=== PATIENT | female | born 1975 | race Caucasian/White ===

== ENCOUNTER 2020-05-16 11:47 | Emergency (ER) | payer OTHER, SELFPAY ==
--- NOTE | ~2020-05-16 | CT_ITS ---
EXAMINATION: CT abdomen pelvis w con DATE: 05/16/2020 15:36 INDICATION: Abdominal pain, nausea and diarrhea. TECHNIQUE: Computed tomography (CT) of the abdomen and pelvis was performed with 100 mL Omnipaque-350 intravenous contrast. Automated exposure control and iterative reconstruction technique were employe d. The dose-length product was 198.87 mGy-cm. COMPARISON: None FINDINGS: Negligible dependent atelectasis in the lower lobes. Heart size is normal. No pericardial or pleural effusion. Liver, gallbladder, spleen, pancreas, bilateral adrenal glands and kidneys are normal. Norm al appendix. No abnormal bowel wall thickening or obstruction. Bladder, anteverted uterus and bilater al adnexa are unremarkable. Tiny amount of likely physiologic free fluid in the cul-de-sac. No absces s or free intraperineal gas. No pathologically enlarged abdominal or pelvic lymphadenopathy. Mild lum bar levocurvature and thoracolumbar dextrocurvature. IMPRESSION: 1. Tiny amount of likely physiologic free fluid in the cul-de-sac. No evident acute intra-abdominal/p elvic process. Reviewed, dictated and finalized at location H. IT COUNSELOR IMPRESSION: 1. Tiny amount of likely physiologic free fluid in the cul-de-sac. No evident a cute intra-abdominal/pelvic process.
--- NOTE | ~2020-05-16 | XR_ITS ---
EXAMINATION: XR chest 1V portable EXAM DATE: 05/16/2020 13:42 INDICATION: chest pain, and shortness of breath. Suspect COVID-19. TECHNIQUE: Portable AP frontal chest x-ray was obtained. Comparison is made to prior examination from 07/09/2019. FINDINGS: The lungs are clear. There are no pleural effusions. The cardiomediastinal silhouette is within normal limits. There is no pneumothorax suspected. The bones and soft tissues are unremarkab le. IMPRESSION: No acute cardiopulmonary findings. Reviewed, dictated and finalized at location A. R FINAL INSPECTOR
[2020-05-16 11:51] VITALS: BP 121/76; PULSE 81; RESP 19; TEMP 36.2; O2SAT 100
--- NOTE | 2020-05-16 11:55 | ECG_ITS ---
Measurements Intervals [place] Rate: 72 P: 64 NE: 126 QRS: 46 QRSD: 81 T: 45 QT: 356 QTc: 390 Interpretive Statements SINUS RHYTHM BASELINE ARTIFACT- I, II, III, AVR NORMAL ECG Electronically Signed On 05-16-2020 17:01:10 INSIDE SALES ACCOUNT REPRESENTATIVE by Negro Jimenez D.O.
[2020-05-16 12:14] LABS: Basophils Percent Auto 0.6 % (0.2-1.2); Eosinophils Percent Auto 0.3 % (0-4.4); Hematocrit 30.9 % (37.0-47.0); Hemoglobin 9.4 g/dL (12.0-15.0); Immature Granulocyte Absolute 0.02 K/mm3 (0.00-0.031); Immature Granulocyte Percent A 0.3 % (0-0.5); Lymphocytes Absolute Auto 1.56 K/mm3 (0.9-3.2); Lymphocytes Percent Auto 23.1 % (18.3-44.2); Mean Corpuscular HGB Conc 30.4 g/dl (32-36); Mean Corpuscular Hemoglobin 21.7 pg (26-34); Mean Corpuscular Volume 71.4 fl (80-100); Mean Platelet Volume 9.1 fl (7.4-10.4); Monocytes Absolute Auto 0.3 K/mm3 (0.1-0.6); Monocytes Percent Auto 4.9 % (2.6-8.5); Neutrophils Absolute Auto 4.8 K/mm3 (1.3-6.7); Neutrophils Percent Auto 70.8 % (45.5-73.1); Platelet Count Result 397 k/mm3 (150-375); Red Blood Count 4.33 M/mm3 (4.2-5.4); Red Cell Distribution Width 16.8 % (11.5-14.5); White Blood Count 6.7 K/mm3 (4.5-10.0)
[2020-05-16 12:28] LABS: Anion Gap 9 mmol/L (8-16); Blood Urea Nitrogen 11 mg/dL (7-17); Calcium 8.7 mg/dL (8.4-10.2); Carbon Dioxide 24 mmol/L (22-30); Chloride 106 mmol/L (98-107); Estimated CRCL calculation 78 ml/min; Estimated Glomerular Filt Rate > 60; Glucose 110 mg/dL (65-105); Sodium 139 mmol/L (137-145)
[2020-05-16 12:29] LABS: INR 0.9; Prothrombin Time 13.2 Seconds (11.1-14.7)
[2020-05-16 12:30] LABS: Partial Thromboplastin Time 25.8 SECONDS (22.3-36.8)
[2020-05-16 12:40] LABS: Troponin I < 0.012 ng/mL (0.000-0.034)
--- NOTE | 2020-05-16 13:27 | ED.CHESTPAIN ---
HPI - Chest Pain General Chief Complaint: Chest Pain Stated Complaint: covid test Time Seen by Provider: 05/16/20 13:10 Source: patient Mode of arrival: ambulatory Limitations: no limitations History of Present Illness HPI narrative: This is a 44 year old female that presents to the ER for chest pain since last night. Reports the pain as a pressure. Reports it has been intermittent in nature. Associated with upper abdominal discomfort. Does report history of reflux for which she takes Omeprazole daily. Also reports cold symptoms since as well as diarrhea. Reports she was at work today and was told to come get a COVID swab. She is a nurse at [employer], but Denies fever, shortness of breath, hematochezia, or lower extremity edema. Related Data Home Medications Medication Instructions Recorded Confirmed No Home Medications 05/16/20 05/16/20 Allergies Allergy/AdvReac Type Severity Reaction Status Date / Time No Known Allergies Allergy Verified 05/16/20 11:56 Review of Systems Review of Systems: Narrative: CONSTITUTIONAL: Denies fever CARDIOVASCULAR: Reports chest pain. Denies edema. RESPIRATORY: Reports cough. Denies dyspnea. GASTROINTESTINAL: Reports abdominal pain, nausea, diarrhea. Denies vomiting GENITOURINARY: Denies dysuria or hematuria. All systems reviewed & are unremarkable except as noted in HPI and below PMFSH Family History Family History (Updated 07/06/16 @ 09:24 by DOCTOR UNKNOWN) Mother Family history of malignant neoplasm of breast in first degree relative Social History Social History Smoking status: Never smoker Alcohol intake: current Gender identity (if verbalized by the patient): Female Exam Narrative: Exam Narrative: GENERAL: Well-appearing, well-nourished, and in no acute distress. HEAD: Normocephalic, atraumatic. EYES: EOMI. ENT: Mucous membranes moist. Oropharynx without tonsillar hypertrophy exudate or other lesions. NECK: Supple. No adenopathy or masses. CHEST: Clear to auscultation. No respiratory distress. No wheezes rales or rhonchi HEART: Regular rate and rhythm. No murmur heard. Normal peripheral pulses. ABDOMEN: Soft, nondistended, normal active bowel sounds. Tender to palpation in the epigastrium, without guarding EXTREMITIES: Normal range of motion. No edema. SKIN: Warm, dry, no rash. NEURO: No focal deficits. Alert and oriented x3. PSYCH: Normal mood and affect Course Vital Signs Vital signs: Vital Signs Temperature 97.2 F L 05/16/20 11:51 Pulse Rate 81 05/16/20 11:51 Respiratory Rate 19 05/16/20 11:51 Blood Pressure 121/76 05/16/20 11:51 Pulse Oximetry 100 05/16/20 11:51 Temperature 97.2 F L 05/16/20 11:51 Pulse Rate 72 05/16/20 16:00 Respiratory Rate 16 05/16/20 16:00 Blood Pressure 121/73 05/16/20 16:00 Pulse Oximetry 99 05/16/20 16:00 MDM - Chest Pain MDM Narrative Medical decision making narrative: Patient presents to the emergency department for cold symptoms and abdominal discomfort. Is a nurse at [employer], and was told to come get tested for Covid. Her vitals are normal. CBC is without leukocytosis. Does show a microcytic anemia with hemoglobin of 9.4. Metabolic panel without concerning findings. Baseline and 3-hour troponin are negative. D-dimer is negative. Influenza screen is negative. Chest x-ray is without acute findings. CT scan abdomen and pelvis is without acute findings. No concerning changes on EKG. Patient was updated on case findings. SARS-CoV-2 was sent. Patient's heart score is a 1. Her chest pain is felt to likely be related to her reflux. She reports relief with Protonix and Tylenol. Patient is stable and felt appropriate for further outpatient evaluation. She is to follow-up with her primary care doctor. She was given warnings to return to the ER Lab Data Attestation: I reviewed the patient's lab results. Result diagrams: 05/16/20 12:00 05/16/20 12:00
[2020-05-16 13:43] LABS: Alanine Aminotransferase 14 U/L (4-35); Alkaline Phosphatase 41 U/L (38-126); Aspartate Amino Transferase 28 U/L (14-36); Bilirubin,Total 0.4 mg/dL (0.2-1.3); Lipase 59 U/L (23-300)
[2020-05-16 14:00] VITALS: BP 120/70; PULSE 76; RESP 16; O2SAT 98
[2020-05-16] MEDS: ASPIRIN 81 MG CHEWABLE TABLET 324 MG PO (14:08)
[2020-05-16] MEDS: PANTOPRAZOLE SODIUM IV 40 MG VIAL IV PUSH (14:08)
[2020-05-16 15:20] LABS: Troponin I < 0.012 ng/mL (0.000-0.034)
[2020-05-16 16:00] VITALS: BP 121/73; PULSE 72; RESP 16; O2SAT 99
[2020-05-16 17:00] VITALS: BP 121/68; PULSE 72; RESP 16; O2SAT 97
[2020-05-16 23:37] LABS: SARS-CoV-2 RNA PCR Negative
== END 2020-05-16 17:00 | disposition home or self-care (01) ==
PROVIDERS: General Practice; Physician Assistant; Emergency Provider Emergency Medicine; PCP Family Medicine
DX: K21.9 Gastro-esophageal reflux disease without esophagitis (principal); B34.9 Viral infection, unspecified; D64.9 Anemia, unspecified; Z20.828 Contact with and (suspected) exposure to other viral communicable diseases
CPT/HCPCS: 36415; 71045; 74177; 80048; 80076; 83690; 84484; 85025; 85380; 85610; 85730; 87635; 87804; 93005; 96365; 96375; 99284; A9270; C9113; C9803; J0131; Q9967; U0003

== ENCOUNTER 2020-05-25 10:28 | Outpatient (NON) | payer OTHER, SELFPAY ==
[2020-05-25 14:55] LABS: Influenza Control Positive
[2020-05-26 19:17] LABS: SARS-CoV-2 RNA PCR Positive
== END 2020-05-25 10:29 ==
LOC: ANHCOVIDDT 10:30
PROVIDERS: PCP Family Medicine; Visit Provider Family Medicine
DX: U07.1 COVID-19 (principal)
CPT/HCPCS: 87635; 87804; C9803; U0003

== ENCOUNTER 2021-03-11 15:03 | Outpatient (CLI) | payer OTHER, SELFPAY ==
--- NOTE | ~2021-03-11 | US_ITS ---
Please refer to diagnostic mammogram report dated 03/11/2021 for details. Reviewed, dictated and finalized at location A.
--- NOTE | ~2021-03-11 | MM_ITS ---
EXAMINATION: MM diagnostic david BI w [facility] HISTORY: Palpable right breast abnormality TECHNIQUE: Additional 3-D tomosynthesis images of the breasts were performed and synthetic 2-D images were generated. CAD analysis was submitted and interpreted. High resolution Limited right breast ult rasound was performed. COMPARISON: 11/23/2016 BREAST PARENCHYMAL COMPOSITION: The breasts are extremely dense, which lowers the sensitivity of mamm ography. FINDINGS: MAMMOGRAPHIC FINDINGS: There are new calcifications in the upper outer quadrant of the right breast, many of which layer on the medial lateral view suggesting benign fibrocystic disease. No discrete masses or architectural di stortion is identified. ULTRASOUND: Limited right breast ultrasound: At 10:00, 3 cm from the nipple in the area of palpable concern there is a 1.3 cm cyst. No suspicious solid masses are identified. IMPRESSION: 1. Probable benign right breast calcifications. 2. Recommend 6 month follow-up diagnostic right mammogram BI-RADS category 3, probably benign findings. Reviewed, dictated and finalized at location A.
== END 2021-03-11 15:04 | disposition home or self-care (01) ==
PROVIDERS: PCP Family Medicine; Visit Provider Obstetrics & Gynecology
DX: N63.10 Unspecified lump in the right breast, unspecified quadrant (principal); R92.8 Other abnormal and inconclusive findings on diagnostic imaging of breast
CPT/HCPCS: 76642; 77062; 77066; G0279

== ENCOUNTER 2022-02-15 19:37 | Emergency (ER) | payer OTHER, SELFPAY ==
[2022-02-15 20:03] VITALS: BP 133/96; PULSE 83; RESP 16; TEMP 37; O2SAT 100
--- NOTE | 2022-02-15 20:16 | ED.GENADULT ---
HPI - General Adult General Chief complaint: Extremity Injury, Upper Stated complaint: L SHOULDER/ARM PAIN Time Seen by Provider: 02/15/22 20:16 Source: patient, RN notes reviewed and old records reviewed Mode of arrival: ambulatory Limitations: no limitations History of Present Illness HPI narrative: 46-year-old female who presents to [facility] care with complaints of left scapular pain and left shoulder discomfort for the past 3 days. Patient states today her scapular pain has increased and she has some paraesthesia intermittently to her left hand. Patient reports that she has had similar discomfort on the right side before but not on left scapular area.Patient denies any known injury or any trauma to scapular area or left shoulder. Circulation intact with strong pulses to right arm MD complaint: left scapular pain radiating into shoulder Onset (ago): day(s) (3) Location: neck (left scapula), left and upper extremity Severity scale (1-10): 6 Quality: aching and other (soreness) Treatments prior to arrival: NSAID Related Data Allergies Allergy/AdvReac Type Severity Reaction Status Date / Time No Known Allergies Allergy Verified 12/31/21 09:04 Review of Systems Review of Systems: CONSTITUTIONAL: Denies fever, chills, or sweats. EYES: Denies visual changes, redness, or discharge. ENT: Denies rhinorrhea, congestion, sore throat, or otalgia. CARDIOVASCULAR: Denies chest pain, palpitations, or edema. RESPIRATORY: Denies cough or dyspnea. GASTROINTESTINAL: Denies abdominal pain, nausea, vomiting, or diarrhea. GENITOURINARY: Denies dysuria or hematuria. SKIN: Denies rash or itching. MUSCULOSKELETAL: Reports left scapular area back pain,left shoulder area pain, or myalgia. NEUROLOGIC: Denies headache, numbness, or weakness. PSYCHIATRIC: Denies anxiety or depression. All systems reviewed & are unremarkable except as noted in HPI and below PMFSH Past Medical History Medical History (Updated 02/15/22 @ 21:07 by Blanca Astorga NP) Anemia Hx of migraines Vaginal discharge Surgical History Surgical History (Updated 02/15/22 @ 20:40 by Blanca Astorga NP) No history of previous surgery Family History Family History Mother Family history of malignant neoplasm of breast in first degree relative Social History Social History (Updated 12/31/21 @ 09:07 by Josselyn Disla [facility]) Smoking status: Never smoker Second hand tobacco smoke exposure: No Alcohol intake: current Drinks per week: 4 Substance use: never Substance use type: does not use Additional living arrangements comments: Additional occupation/education comments: RN Gender identity (if verbalized by the patient): Female Sexual Orientation (if Verbalized by the Patient): Straight or Heterosexual Spiritual care concerns: No Agree to blood products: Yes Comments At time of signature, agree with nursing past medical, surgical, social and family history. There is no relevant family history pertinent to the presenting complaint Exam Narrative: GENERAL: Well-appearing, well-nourished, and in no acute distress. HEAD: Normocephalic, atraumatic. EYES: PERRLA and EOMI. ENT: Nares clear, no rhinorrhea or epistaxis. Mucous membranes moist. NECK: Supple.no lymphadenopathy full mobility of neck normal forward flexion CHEST: Clear to auscultation. No respiratory distress. HEART: Regular rate and rhythm. No murmur heard. Normal peripheral pulses. ABDOMEN: Soft, nontender, nondistended, normal active bowel sounds. EXTREMITIES: Normal range of motion. No edema. Painful ROM left shoulder and pain to left scapular area with tightness to muscles noted to scapular area, adequate circulation with strong pulses to left radial and brachial aspect, some intermittent feelings or paraesthesia to left hand SKIN: Warm, dry, no rash. NEURO: No focal deficits. Alert and oriented x3. Course Course Level
== END 2022-02-15 20:33 | disposition home or self-care (01) ==
PROVIDERS: Emergency Provider Registered Nurse; PCP Family Medicine
DX: S46.812A Strain of other muscles, fascia and tendons at shoulder and upper arm level, left arm, initial encounter (principal); X58.XXXA Exposure to other specified factors, initial encounter
CPT/HCPCS: 99213; G0463

== ENCOUNTER 2022-03-14 09:00 | Outpatient (CLI) | payer OTHER, SELFPAY ==
--- NOTE | ~2022-03-14 | MM_ITS ---
EXAMINATION: MM screening david BI w haroldo HISTORY: Screening mammogram, family history of breast cancer in her mother. TECHNIQUE: Craniocaudal and mediolateral oblique 3-D tomosynthesis images were obtained and synthetic 2-D images were generated. CAD analysis was submitted and interpreted. COMPARISON: 03/11/2021, 11/23/2016 BREAST PARENCHYMAL COMPOSITION: The breasts are extremely dense, which lowers the sensitivity of mamm ography. FINDINGS: Scattered benign-appearing calcifications are present. There is no suspicious mass, calcifi cation, or architectural distortion to suggest malignancy in either breast. There has been no suspici ous interval change. IMPRESSION: 1. No mammographic evidence of malignancy. 2. Recommend routine screening mammography in one year. BI-RADS Category 2: Benign finding(s). Reviewed, dictated and finalized at location A.
== END 2022-03-14 09:01 | disposition home or self-care (01) ==
LOC: ANHIMG 09:04
PROVIDERS: PCP Internal Medicine; Visit Provider Obstetrics & Gynecology
DX: Z12.31 Encounter for screening mammogram for malignant neoplasm of breast (principal)
CPT/HCPCS: 77063; 77067

== ENCOUNTER 2022-04-18 15:33 | Emergency (ER) | payer OTHER, SELFPAY ==
--- NOTE | ~2022-04-18 | US_ITS ---
EXAMINATION:US venous doppler LE INDICATION:Swelling. Cold sensation. Evaluate for deep venous thrombosis. TECHNIQUE: Multiple grayscale, color flow and Doppler images of the left lower extremity deep venous systems were obtained and reviewed. COMPARISON:No prior studies for comparison. FINDINGS: The common femoral, superficial femoral veins demonstrate normal respiratory variation, aug mentation and compressibility. There is partially occlusive deep venous thrombosis of the left poplit eal vein. Color flow is also seen within the posterior tibial, peroneal, greater saphenous and profun da veins. IMPRESSION: 1: Partially occlusive deep venous thrombosis of the left popliteal vein. Dr. Renzo Loyd discussed with Dr. Carolina Schuler MD at 04/18/2022 17:35 CDT. Reviewed, dictated and finalized at location B.
[2022-04-18 16:16] VITALS: BP 146/85; PULSE 83; RESP 16; TEMP 36.4; O2SAT 100
--- NOTE | 2022-04-18 17:25 | PC.NURSE ---
Patient off unit to Radiology.
--- NOTE | 2022-04-18 17:37 | ED.LOWEXIN ---
HPI - Extremity Injury (Lower) General Chief Complaint: Extremity Injury, Lower <Alison Bailey PA-C - Last Filed: 04/18/22 19:00> Stated Complaint: left leg pain <Alison Bailey PA-C - Last Filed: 04/18/22 19:00> Time Seen by Provider: 04/18/22 17:29 <Alison Bailey PA-C - Last Filed: 04/18/22 19:00> History of Present Illness HPI Narrative: 46-year-old female who is here for evaluation of left lower extremity swelling and cramping over the past several days. Patient states that she climbed a mountain last week and had a rough descent, has been having cramping and pain since then. Today she noticed some numbness in her left foot which prompted ED evaluation, would like to be checked for a blood clot. Denies personal history of blood clots, family history of blood clots, is not currently on blood thinner medications. States she is very healthy. <Alison Bailey PA-C - Last Filed: 04/18/22 19:00> Related Data Home Medications: Home Medications Medication Instructions Recorded Confirmed ferrous sulfate 325 mg (65 mg 325 mg PO DAILY 03/10/22 03/10/22 iron) tablet <Alison Bailey PA-C - Last Filed: 04/18/22 19:00> Allergies/Adverse Reactions: Allergies Allergy/AdvReac Type Severity Reaction Status Date / Time No Known Allergies Allergy Verified 03/10/22 08:07 <Alison Bailey PA-C - Last Filed: 04/18/22 19:00> [facility] Past Medical History Medical History: Medical History (Updated 04/19/22 @ 00:00 by Ina Rasmussen) Anemia Depression Hx of migraines Seasonal allergies Vaginal discharge <AUGUSTO Long Last Filed: 04/18/22 19:00> Surgical History Surgical History: Surgical History (Updated 04/18/22 @ 15:25 by Emi Duncan) Hx of LASIK No history of previous surgery <AUGUSTO Long Last Filed: 04/18/22 19:00> Family History Family History: Family History (Updated 04/18/22 @ 15:25 by Emi Duncan) Mother Breast cancer Daughter Melanoma <Alison Bailey PA-C - Last Filed: 04/18/22 19:00> Social History Social History: Social History Smoking status: Never smoker Second hand tobacco smoke exposure: No Alcohol intake: current Drinks per week: 4 Substance use: never Substance use type: does not use Additional living arrangements comments: Additional occupation/education comments: RN Gender identity (if verbalized by the patient): Female Sexual Orientation (if Verbalized by the Patient): Straight or Heterosexual Spiritual care concerns: No Agree to blood products: Yes <Alison Bailey PA-C - Last Filed: 04/18/22 19:00> Exam Narrative: APPEARANCE: Well appearing, no pain in distress, well-nourished. Head: Normocephalic and atraumatic. EYES: PERRLA/EOMI, conjunctivae clear NOSE: No nasal drainage EARS: External ear normal in appearance THROAT: Oropharynx is clear. Mucous membranes are moist. NECK: Supple. No adenopathy, no masses. RESPIRATORY: Airway patent, respirations nonlabored. Clear to auscultation bilaterally, no rales, rhonchi, wheezing. CARDIOVASCULAR: 2+ DP and PT pulses bilaterally. Regular rate and rhythm without murmurs, rubs, or gallops. ABDOMINAL: Normoactive bowel sounds. Soft, nontender, nondistended. No rebound tenderness or guarding. MUSCULOSKELETAL: Tender to palpation to left popliteal region. Homans' sign negative. No obvious swelling to extremities. NEURO: Normal speech. No focal neurologic deficits. SKIN: Skin is warm and dry. No rashes. PSYCHIATRIC: Normal affect/mood. <Alison Bailey PA-C - Last Filed: 04/18/22 19:00> Course PLANNING FEEDER/PA Physician Supervision For this encounter, I have reviewed the mid-level provider documentation, treatment plan and medical decision making. I sat down and spoke with the
[2022-04-18 18:03] LABS: Basophils Percent Auto 0.1 % (0.2-1.2); Hematocrit 40.4 % (37.0-47.0); Hemoglobin 13.1 g/dL (12.0-15.0); Immature Granulocyte Absolute 0.03 K/mm3 (0.00-0.031); Immature Granulocyte Percent A 0.4 % (0-0.5); Lymphocytes Absolute Auto 0.64 K/mm3 (0.9-3.2); Lymphocytes Percent Auto 7.7 % (18.3-44.2); Mean Corpuscular HGB Conc 32.4 g/dl (32-36); Mean Corpuscular Hemoglobin 28.6 pg (26-34); Mean Corpuscular Volume 88.2 fl (80-100); Mean Platelet Volume 8.8 fl (7.4-10.4); Monocytes Absolute Auto 0.2 K/mm3 (0.1-0.6); Monocytes Percent Auto 2.8 % (2.6-8.5); Neutrophils Absolute Auto 7.4 K/mm3 (1.3-6.7); Platelet Count Result 380 k/mm3 (150-375); Red Blood Count 4.58 M/mm3 (4.2-5.4); Red Cell Distribution Width 16.5 % (11.5-14.5); White Blood Count 8.3 K/mm3 (4.5-10.0)
[2022-04-18 18:13] LABS: Partial Thromboplastin Time 26.5 SECONDS (22.3-36.8); Prothrombin Time 12.4 Seconds (11.1-14.7)
[2022-04-18 18:14] LABS: Alanine Aminotransferase 37 U/L (6-35); Albumin Level 4.3 g/dL (3.5-5.1); Alkaline Phosphatase 57 U/L (38-126); Anion Gap 10 mmol/L (8-16); Aspartate Amino Transferase 28 U/L (14-36); Bilirubin,Total 0.5 mg/dL (0.2-1.3); Blood Urea Nitrogen 18 mg/dL (7-17); Calcium 8.7 mg/dL (8.4-10.2); Carbon Dioxide 23 mmol/L (22-30); Chloride 104 mmol/L (98-107); Estimated CRCL calculation 89 ml/min; Estimated Glomerular Filt Rate > 60; Glucose 124 mg/dL (65-110); Potassium 4.6 mmol/L (3.4-5.0); Sodium 137 mmol/L (137-145)
[2022-04-18] MEDS: APIXABAN 5 MG TABLET 10 MG PO (19:15)
[2022-04-18 19:23] VITALS: BP 127/91; PULSE 83; RESP 14; O2SAT 100
== END 2022-04-18 19:29 | disposition home or self-care (01) ==
PROVIDERS: Physician Assistant; Emergency Provider Emergency Medicine; PCP Internal Medicine
DX: I82.432 Acute embolism and thrombosis of left popliteal vein (principal); D64.9 Anemia, unspecified; Z79.01 Long term (current) use of anticoagulants
CPT/HCPCS: 36415; 80053; 85025; 85610; 85730; 93971; 99284; A9270

== ENCOUNTER 2022-07-13 08:10 | Outpatient (CLI) | payer OTHER, SELFPAY ==
[2022-07-13 08:42] LABS: Basophils Absolute Auto 0.1 K/mm3 (0.0-0.1); Basophils Percent Auto 1.1 % (0.2-1.2); Eosinophils Absolute Auto 0.1 K/mm3 (0-0.3); Eosinophils Percent Auto 1.5 % (0-4.4); Hematocrit 36.7 % (37.0-47.0); Hemoglobin 12.1 g/dL (12.0-15.0); Immature Granulocyte Absolute 0.03 K/mm3 (0.00-0.031); Immature Granulocyte Percent A 0.5 % (0-0.5); Lymphocytes Absolute Auto 1.65 K/mm3 (0.9-3.2); Lymphocytes Percent Auto 30.1 % (18.3-44.2); Mean Corpuscular Hemoglobin 29.4 pg (26-34); Mean Corpuscular Volume 89.1 fl (80-100); Mean Platelet Volume 8.9 fl (7.4-10.4); Monocytes Absolute Auto 0.4 K/mm3 (0.1-0.6); Monocytes Percent Auto 7.3 % (2.6-8.5); Neutrophils Absolute Auto 3.3 K/mm3 (1.3-6.7); Neutrophils Percent Auto 59.5 % (45.5-73.1); Platelet Count Result 341 k/mm3 (150-375); Red Blood Count 4.12 M/mm3 (4.2-5.4); Red Cell Distribution Width 13.8 % (11.5-14.5); White Blood Count 5.5 K/mm3 (4.5-10.0)
== END 2022-07-13 08:11 | disposition home or self-care (01) ==
PROVIDERS: PCP Internal Medicine; Visit Provider Student in an Organized Health Care Education/Training Program
DX: N93.9 Abnormal uterine and vaginal bleeding, unspecified (principal)
CPT/HCPCS: 36415; 85025

== ENCOUNTER → 2022-07-27 10:41 | Outpatient (CLI) | payer OTHER, SELFPAY ==
--- NOTE | ~2022-07-27 | US_ITS ---
EXAMINATION: US venous doppler [facility] DATE: 07/27/2022 11:52 INDICATION: Lower limb swelling, history of deep venous thrombosis TECHNIQUE: Isaacs scale images without and with compression and Doppler images of the left lower extrem ity veins were obtained. COMPARISON: 04/18/2022 FINDINGS: The left common femoral vein, profunda femoral vein, femoral vein, popliteal vein, peroneal trunk, posterior tibial veins, and greater saphenous vein are patent. IMPRESSION: 1. Patent left lower extremity veins. No evidence of deep venous thrombosis. Reviewed, dictated and finalized at location F. VITIES THERAPIST
== END ==
PROVIDERS: PCP Clinical Nurse Specialist; Visit Provider Clinical Nurse Specialist
DX: I82.409 Acute embolism and thrombosis of unspecified deep veins of unspecified lower extremity (principal)
CPT/HCPCS: 93971

== ENCOUNTER 2022-08-05 13:27 | Outpatient (CLI) | payer OTHER, SELFPAY ==
[2022-08-08 21:29] LABS: Antithrombin III Activity 127 % normal (80-135)
[2022-08-14 01:32] LABS: Factor V (Leiden) Mutation NEGATIVE
== END 2022-08-05 13:28 | disposition home or self-care (01) ==
PROVIDERS: PCP Clinical Nurse Specialist; Visit Provider Clinical Nurse Specialist
DX: I82.409 Acute embolism and thrombosis of unspecified deep veins of unspecified lower extremity (principal)
CPT/HCPCS: 36415; 81240; 81241; 85300; 85303; 85306

== ENCOUNTER 2022-09-15 12:17 | Outpatient (CLI) | payer OTHER, SELFPAY | END 2022-09-15 12:18 | disposition home or self-care (01) | LOC: ANHLAB 12:18 | PROVIDERS: PCP Clinical Nurse Specialist; Visit Provider Student in an Organized Health Care Education/Training Program | DX: N92.0 Excessive and frequent menstruation with regular cycle (principal); Z01.818 Encounter for other preprocedural examination | CPT/HCPCS: 36415 ==

== ENCOUNTER 2022-09-22 01:38 | Day surgery (SDC) | payer OTHER, SELFPAY ==
[2022-09-12 15:40] VITALS: BMI 20.6
--- NOTE | 2022-09-12 15:49 | SUR.PREOP ---
Report to the Outpatient Waiting Room, entrance under the green pavilion located off [facility], at time 1100 on date 09/22/22. Planned Procedure Time: 1300. Time changes happen often and if your time is changed the preop area will call you the afternoon before. - You and your visitor will be asked to self-screen and do not enter if you have any COVID symptoms. - Only one visitor is requested with a max of two and NO children visitors are allowed at this time. - The patient visitor may be requested to leave or wait in car when not with patient due to distancing restrictions. - A mask is optional within the hospital at this time. Patients may have clear liquids (water, carbonated beverages, clear teas, apple juice) until 3 hours prior to surgery with a maximum of 20 ounces. - No food from midnight until time of surgery - Infants may have breast milk until 4 hours before surgery, formula 6 hours prior to surgery. - Children will be allowed to drink immediately following surgery. If applicable, please bring a bottle or sippy cup to assist with drinking. Juice, water, soda, and popsicles are readily available. For infants on formula, please bring formula the day of surgery. Pacifiers are allowed. Take the following medications with a SIP of water the morning of surgery: ___HOLD MORNING MEDS DO NOT STOP ANY OF YOUR OTHER PRESCRIPTION MEDICATIONS PRIOR TO SURGERY ?EXCEPT THE FOLLOWING Medications to discontinue per physician __HOLD FISH OIL AND B12 3 DAYS PRIOR TO PROCEDURE Date to take last dose Please no make-up, nail irish, hairspray, perfume, deodorant, or body powder the day of surgery. No jewelry (including any body piercings) or valuables the day of surgery, leave them at home. Please take a shower or bath the night before, or the morning of, surgery with an antibacterial soap. Wear comfortable, loose fitting clothing. Children are encouraged to wear pajamas. - Jewelry must be removed prior to entering the operating room. Rings and piercings that are not removed may be cut off. - The hospital will not accept responsibility for valuables. - Please leave all valuables, including medications, at home the day of surgery. If you are going home after surgery, a licensed solo truck driver must drive you home. - NO public transportation without another adult if you receive anesthesia. - We recommend that an adult stay with you for 24 hours following discharge. - We also recommend that you do not drive, make important decision, drink alcoholic beverages, or take any drugs that were not prescribed by your health care provider for at least 24 hours after your discharge time. For Pediatric surgeries, we recommend two adults accompany the child home. Follow any additional instructions given to you from your surgeon. If you or anyone in your household have experienced Covid symptoms in the past week, please notify your surgeon or the nurse liaison at the phone number below for possible testing. Telephone instructions given to _PATIENT_and asked if any additional questions and then verbalized understanding. Patient advised to call surgeon office or pre surgery nurse liaison [phone] if any additional questions.
--- NOTE | 2022-09-22 08:07 | PM.IMHP ---
H&P: HPI History of Present Illness Date/Time: 09/22/22 08:07 Chief Complaint: abnormal uterine bleeding Narrative: 38-year-old female who presents for hysteroscopy, D&C, endometrial ablation for abnormal uterine bleeding. Patient was having heavy menses with prolonged intermenstrual bleeding. Patient had a pelvic ultrasound which showed possible uterine polyp. Patient elected for surgical management with endometrial ablation. Review of Systems Cardiovascular: Cardiovascular: Denies chest pain, Denies leg edema, Denies palpitations, Denies dyspnea and Denies dyspnea on exertion Respiratory: Respiratory: Denies cough, Denies dyspnea and Denies dyspnea on exertion Gastrointestinal: Gastrointestinal: Denies abdominal pain, Denies constipation, Denies diarrhea, Denies nausea and Denies vomiting Genitourinary: Genitourinary: Denies hematuria, Denies urinary frequency, Denies dysuria, Denies pelvic pain, Denies urinary incontinence and Denies vaginal discharge Neurologic: Reports system reviewed and no additional complaints, except as documented Psychiatric: Psychiatric: Reports no additional psychiatric complaints Endocrine: Endocrine: Denies palpitations PMFSH Past Medical History Medical History Anemia Depression Endometrial cyst of ovary Hx of migraines Seasonal allergies Vaginal discharge Surgical History Surgical History Hx of LASIK No history of previous surgery Family History Family History Mother Breast cancer Daughter Melanoma Social History Social History (Updated 08/29/22 @ 10:32 by Sujey Brown CMA) Smoking status: Never smoker Second hand tobacco smoke exposure: No Alcohol intake: current Drinks per week: 4 Substance use: never Substance use type: does not use Lack of Transportation: No Lack of Food: Never True Current Housing: I Have Housing Concerned About Future Housing: No Difficulty Paying Gas/Electric Bills: No Difficulty Paying for Meds: No Currently Unemployed: No Education: Bachelor's Degree Difficulty w/ Childcare or Family Care: No Living arrangements: with family Additional living arrangements comments: Occupation/Education: occupation Additional occupation/education comments: RN Gender identity (if verbalized by the patient): Female Sexual Orientation (if Verbalized by the Patient): Straight or Heterosexual Spiritual care concerns: No Agree to blood products: Yes Meds Home Medications and Allergies Home Medications Medication Instructions Recorded Confirmed Type cetirizine 10 mg tablet (Zyrtec) 10 mg PO DAILY 09/12/22 09/12/22 History cyanocobalamin (vitamin B-12) 5,000 mcg PO DAILY 09/12/22 09/12/22 History 5,000 mcg sublingual tablet (Vitamin B-12) omega-3 fatty acids 1,000 mg PO DAILY 09/12/22 09/12/22 History omeprazole 20 mg tablet,delayed 20 mg PO DAILY 09/12/22 09/12/22 History release ofloxacin 0.3 % eye drops 2 drp EACH EYE QID #10 mL 09/20/22 Rx Allergies Allergy/AdvReac Type Severity Reaction Status Date / Time No Known Allergies Allergy Verified 06/15/22 13:35 Exam Const: General: no acute distress Eyes: EOM: EOMs intact bilaterally Neck: Neck: supple Thyroid: thyroid normal Chest: Breast/axilla inspection: normal inspection of the breasts Breast/axilla palpation: normal palpation of the breasts, normal palpation of the axillae and no axillary lymphadenopathy Resp: Effort & Inspection: normal respiratory effort Auscultation: clear to auscultation bilaterally Cardio: Rate: regular rate Rhythm: regular rhythm GI: Inspection: non-distended GI Palp: Yes Soft to palpation, No Tenderness to palpation present (GI) and No Guarding due to palpation present (GI) Auscultation: normal bowel sounds :
--- NOTE | 2022-09-22 08:10 | WPDHPUPDATE1 ---
History and Physical Update Update Date/Time: 09/22/22 08:10 History and Physical has been reviewed, including an updated exam of the patient. There are NO changes in the patient's condition. Risks, benefits, and alternatives have been discussed and questions answered. Patient agrees to proceed with procedure.
[2022-09-22] MEDS: ACETAMINOPHEN 500 MG TABLET 1000 MG PO (10:47)
--- NOTE | 2022-09-22 10:51 | WPDANESEPPF ---
Anes - Initial Pre Proc Eval Procedure: Operation Date: 09/22/22 12:00 Proposed Procedures p Hysteroscopy Dilation and Curettage, Rosalva Endometrial Ablation - Moise Geller MD Date/Time: 09/22/22 10:51 Surgeon: Moise Geller MD Pre Op Diagnosis: abnormal uterine bleeding Patient Data Age: 46 Gender: F Height: 1.68 m Weight: 58.06 kg Allergies Allergy/AdvReac Type Severity Reaction Status Date / Time No Known Allergies Allergy Verified 06/15/22 13:35 Home Medications Medication Instructions Recorded Confirmed Type cetirizine 10 mg tablet (Zyrtec) 10 mg PO DAILY 09/12/22 09/12/22 History cyanocobalamin (vitamin B-12) 5,000 mcg PO DAILY 09/12/22 09/12/22 History 5,000 mcg sublingual tablet (Vitamin B-12) omega-3 fatty acids 1,000 mg PO DAILY 09/12/22 09/12/22 History omeprazole 20 mg tablet,delayed 20 mg PO DAILY 09/12/22 09/12/22 History release ofloxacin 0.3 % eye drops 2 drp EACH EYE QID #10 mL 09/20/22 Rx Patient hx anesthesia problems: none Family hx anesthesia problems: none Results Review: All pre-operative results and documents have been reviewed as part of the pre-operative evaluation. [facility] Past Medical History Medical History Anemia Depression Endometrial cyst of ovary Hx of migraines Seasonal allergies Vaginal discharge Surgical History Surgical History Hx of LASIK No history of previous surgery Family History Family History Mother Breast cancer Daughter Melanoma Social History Social History (Updated 08/29/22 @ 10:32 by Sujey Brown CMA) Smoking status: Never smoker Second hand tobacco smoke exposure: No Alcohol intake: current Drinks per week: 4 Substance use: never Substance use type: does not use Lack of Transportation: No Lack of Food: Never True Current Housing: I Have Housing Concerned About Future Housing: No Difficulty Paying Gas/Electric Bills: No Difficulty Paying for Meds: No Currently Unemployed: No Education: Bachelor's Degree Difficulty w/ Childcare or Family Care: No Living arrangements: with family Additional living arrangements comments: Occupation/Education: occupation Additional occupation/education comments: RN Gender identity (if verbalized by the patient): Female Sexual Orientation (if Verbalized by the Patient): Straight or Heterosexual Spiritual care concerns: No Agree to blood products: Yes Anes - Eval Final PreProcedure Day of Procedure 09/22/22 10:51 Patient weight: normal Heart: regular rate and rhythm Lungs: clear to auscultation Airway: Mallampati scale class II Neurological: alert and oriented Last oral intake: >/= 8 hours ASA classification: II Emergent: no Anesthetic plan: proceed Anesthesia type and monitoring: general GIVS and standard monitoring Results Review: All pre-operative results and documents have been reviewed as part of the pre-operative evaluation. Informed Consent: The patient's anesthetic plan and its attendant risks and benefits were discussed with the patient/family/POA. Questions were solicited and answers provided to the satisfaction of the patient/family/POA.
[2022-09-22 11:00] VITALS: BP 131/76; PULSE 70; RESP 16; TEMP 37.1; O2SAT 100
[2022-09-22] MEDS: LACTATED RINGERS 1,000 ML 30 ML IV CONT (11:00)
[2022-09-22 11:23] LABS: Hematocrit 36.6 % (37.0-47.0)
[2022-09-22] MEDS: LIDOCAINE HCL 1% LOCAL INJ 20 ML VIAL 10 ML INFILTRATE (12:15)
[2022-09-22 12:28] VITALS: BP 104/76; PULSE 76; RESP 16; O2SAT 100
--- NOTE | 2022-09-22 12:28 | W.PM.PROC2 ---
Procedure Note - Detailed Date of Procedure 09/22/22 Pre-op Diagnosis abnormal uterine bleeding Post-op Diagnosis Same Procedure Performed paracervical block hysteroscopy dilation & curettage endometrial ablation Surgeon Moise Geller MD Anesthesia General Indications abnormal uterine bleeding Findings intrauterine polyp originating from the left uterine sidewall. Normal tubal ostia bilaterally Description of Procedure Casie Covarrubias presents for the above procedure for AUB. She was counseled as to the indications, risks, benefits, and alternatives to surgery, with the risks including bleeding, infection, damage to surrounding organs, VTE, and complications of anesthesia. Her verbal and written consent was obtained. PROCEDURE: The patient was taken to the OR and general anesthesia induced. She was prepped and draped in Ken stirrups with support of the back and bilateral lower extremities. I/O catheterization performed of the bladder. The above findings were noted. Infiltration with 1% lidocaine at the 3 and 9 o'clock cervical positions was performed. A single tooth tenaculum was placed on the anterior lip of the cervix. The uterus sounded to 10 cm. The cervix was dilated with sequential Gregoria dilators. Hysteroscopy, using a normal saline medium, was performed and showed the above findings. The uterine polyp was removed usince the Aveta hysteroscope operative blade. Endometrial sampling was also obtained. The Rosalva device was set to a depth of 6 cm. The device was inserted into the uterus and deployed. Good fit was reassured by the device indicator. The cervical balloon was insufflated to ensure a good seal. Uterine integrity test was performed by the Rosalva device and was successful. The device was then activated. The entire ablation procedure lasted 120 seconds. The cervical balloon was desufflated and the device was removed from the uterus. The hysteroscope was re-introduced to ensure adequate tissue ablation. The tenaculum was removed and hemostasis was observed. The patient tolerated the procedure well. Sponge, lap, and needle counts were correct. T The patient was taken to the recovery room in stable condition. Estimated Blood Loss 5 Urine Output 100 Drains No Packing No Pathology Yes (endometrial curettings ) Complications No immediate complications Condition Stable Disposition PACU [facility] Billing Surgery - Charge Forward: Surgery Billing
[2022-09-22 12:55] VITALS: BP 104/71; PULSE 75; RESP 16
[2022-09-22 13:25] VITALS: BP 127/87; RESP 16
== END 2022-09-22 13:30 | disposition home or self-care (01) ==
PROVIDERS: PCP Clinical Nurse Specialist; Visit Provider Student in an Organized Health Care Education/Training Program
PROC: 0U5B8ZZ Destruction of Endometrium, Via Natural or Artificial Opening Endoscopic (ICD-10-PCS; CPT 58563; principal; 2022-09-22 12:00)
DX: N92.0 Excessive and frequent menstruation with regular cycle (principal); N84.0 Polyp of corpus uteri
CPT/HCPCS: 58563; 36415; 85014; 85018; 88305; A9270; J1885; J2250; J2704; J3010; J7120

== ENCOUNTER 2023-09-29 07:44 | Outpatient (CLI) | payer BC, SELFPAY ==
--- NOTE | ~2023-09-29 | MM_ITS ---
EXAMINATION: MM screening david BI w haroldo HISTORY: Screening TECHNIQUE: Craniocaudal and mediolateral oblique 3-D tomosynthesis images were obtained and synthetic 2-D images were generated. CAD analysis was submitted and interpreted. COMPARISON: Comparison to multiple prior studies sequentially, with oldest reviewed study dated 11/23. BREAST PARENCHYMAL COMPOSITION: Dense: The breasts are heterogeneously dense, which may obscure small masses FINDINGS: There is a new mass located in the medial aspect of the right breast on CC view. There are developing clustered indeterminate calcifications in the upper outer quadrant of the right breast. Th e left breast is stable without evidence for malignancy. IMPRESSION: 1. Developing clustered indeterminate right breast calcifications. New right breast mass seen on CC v iew only located medially. 2. Additional mammographic views and possible breast ultrasound are recommended. BI-RADS Category 0: Incomplete: Needs additional imaging evaluation. Reviewed, dictated and finalized at location A. IMPRESSION: 1. Developing clustered indeterminate right breast calcifications. New right br east mass seen on CC view only located medially. 2. Additional mammographic views and possible breast ultrasound are recommended . BI-RADS Category 0: Incomplete: Needs additional imaging evaluation.
== END 2023-09-29 07:45 | disposition home or self-care (01) ==
LOC: ANHIMG 07:46
PROVIDERS: PCP Clinical Nurse Specialist; Visit Provider Obstetrics & Gynecology
DX: Z12.31 Encounter for screening mammogram for malignant neoplasm of breast (principal); R92.8 Other abnormal and inconclusive findings on diagnostic imaging of breast
CPT/HCPCS: 77063; 77067

== ENCOUNTER 2023-10-31 10:38 | Outpatient (CLI) | payer BC, SELFPAY ==
--- NOTE | ~2023-10-31 | MMUS_ITS ---
EXAMINATION: MM diagnostic david RT w haroldo, US breast RT complete HISTORY: Developing clustered indeterminate right breast calcifications and new right breast mass rep orted on September 29, 2023 screening mammogram TECHNIQUE: Additional 3-D tomosynthesis images of the right breast were performed and synthetic 2-D i mages were generated. ML and CC magnification views. CAD analysis was submitted and interpreted. High resolution breast ultrasound was performed. COMPARISON: September 29, 2023 bilateral screening mammogram / bilateral screening mammogram 03/11/2021 diagnostic bilateral mammogram 11/23/2016 bilateral screening mammogram FINDINGS: MAMMOGRAPHIC FINDINGS: Numerous punctate and circular microcalcifications are noted in the upper outer quadrant of the right breast, present on prior examinations. No suspicious linear or branching microcalcifications are not ed. There is no sonographic correlate. ULTRASOUND: 3:00 4 cm from nipple: 2.5 x 3.7 x 4.2 mm cyst 7:00 2 cm from nipple: Septated cyst 2.8 x 3.3 x 2 x 5 mm hypoechoic or sonolucent lesion without internal vascularity or posterior shadow ing is noted in the right breast at 7:00 4 cm from the nipple. The lesion is antiparallel. 6 month fo llow-up targeted ultrasound at this location is recommended. 9:00 5 cm from nipple: Septated 4.6 x 13.7 mm cyst 10:00 3 cm from nipple: 3.7 x 11.8 mm cyst IMPRESSION: 1. Probably benign findings 2. Six-month diagnostic right mammogram and targeted ultrasound follow-up at 7:00 4 cm from the nippl e is recommended BI-RADS category 3, probably benign findings. Reviewed, dictated and finalized at location B. IMPRESSION: 1. Probably benign findings 2. Six-month diagnostic right mammogram and targeted ultrasound follow-up at 7: 00 4 cm from the nipple is recommended BI-RADS category 3, probably benign findings.
== END 2023-10-31 10:39 | disposition home or self-care (01) ==
PROVIDERS: PCP Clinical Nurse Specialist; Visit Provider Obstetrics & Gynecology
DX: R92.8 Other abnormal and inconclusive findings on diagnostic imaging of breast (principal)
CPT/HCPCS: 76641; 77061; 77065; G0279

== ENCOUNTER 2024-05-03 10:50 | Outpatient (CLI) | payer BC, SELFPAY ==
--- NOTE | ~2024-05-03 | MMUS_ITS ---
EXAMINATION: MM diagnostic david RT w haroldo, US breast RT limited HISTORY: Follow-up right breast mass and right breast calcifications TECHNIQUE: Additional 3-D tomosynthesis images of the right breast were performed and synthetic 2-D i mages were generated. CAD analysis was submitted and interpreted. High resolution Limited right breas t ultrasound was performed. COMPARISON: Comparison to multiple prior studies sequentially, with oldest reviewed study dated 03/11. BREAST PARENCHYMAL COMPOSITION: Dense: The breasts are heterogeneously dense, which may obscure small masses FINDINGS: MAMMOGRAPHIC FINDINGS: There are no suspicious masses or architectural distortion. Stable benign-appearing punctate calcific ations in the upper outer quadrant of the right breast. ULTRASOUND: Limited right breast ultrasound: At 7:00, 4 cm from the nipple there is a minimally complicated cyst measuring 1.3 x 1.3 x 0.6 cm with internal septation. No suspicious masses to suggest malignancy. IMPRESSION: 1. No evidence for malignancy in the right breast. Benign findings. 2. Routine yearly screening mammogram and regular clinical breast examination are recommended. BI-RADS Category 2: Benign finding(s). Reviewed, dictated and finalized at location B. EM DISPATCHER IMPRESSION: 1. No evidence for malignancy in the right breast. Benign findings. 2. Routine yearly screening mammogram and regular clinical breast examination a re recommended. BI-RADS Category 2: Benign finding(s).
== END 2024-05-03 10:51 | disposition home or self-care (01) ==
LOC: ANHIMG 10:51
PROVIDERS: PCP Clinical Nurse Specialist; Visit Provider Obstetrics & Gynecology
DX: N63.10 Unspecified lump in the right breast, unspecified quadrant (principal); R92.0 Mammographic microcalcification found on diagnostic imaging of breast
CPT/HCPCS: 76642; 77061; 77065; G0279

== ENCOUNTER 2024-10-18 15:41 | Emergency (ER) | payer OTHER, SELFPAY ==
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
[2024-10-18 15:42] VITALS: BP 120/82; PULSE 68; RESP 16; TEMP 36.3; O2SAT 100
--- OUTSIDE RECORDS SUMMARY | 2024-10-18 15:44 | XMS_ITS | Clinical Summary ---
Author Organization [facility] Address [address] [place] [address] Care Team Providers Care Teacher Associate Name Role Phone ReubenYvonne mtz [employer] ATTENDANT-[facility] Primary Care Provider [phone] Source Comments [facility],non-owned Affiliates and Associated Physician Practices is amultiple site organization consisting of ambulatory clinics and hospital sitesin [place], [place], [place] and [place]. This disclosure is being madepursuant to the Care Everywhere program and may not contain all information available regarding this patient. Last updated 18.[facility] Allergies No known active allergies Medications * Be aware that medications may not be up to date on this document. Alwaysverify current medications with the patient. No known medications Immunizations Immunization Administration Dates Next Due INFLUENZA VACCINE, QUADR. (F LUZONE; FLULAVAL; FLUARIX; AFLURIA QUADRIVALENT; 6MO+), 0.5 ML (IIV4) 03/16/2018 Social History Tobacco Use Types Packs/Day Years Used Date Smoking Tobacco: Never Assessed Comments Unknown Sex and Gender Information Value Date Recorded Sex Assigned at Not on file Legal Sex Female 8:27 AM CDT Gender Identity Not on file Sexual Orientation Not on file Plan of Treatment Health Maintenance Due Date Last Done Comments COLOGUARD (AGES 45-75) - COL ON CA SCREENING 1973 COLON MONITORING 1973 COLONOSCOPY - COLON CA SCREENING 1973 CT COLONOGRAPHY - COLON CA SCREENING 1973 Colorectal Cancer Screening 1973 FIT - COLON CA SCREENING 1973 FLEX SIG - COLON CA SCREENING 1973 LIPID TESTING 1973 MAMMOGRAM 1973 HIV SCREENING 1988 HEPATITIS C SCREENING 11/01/1991 DTAP/TDAP/TD VACCINES (1 - Tdap) 1992 HEPATITIS B VACCINE (1 of 3 - 19+ 3-dose series) 1992 PNEUMOCOCCAL VACCINE 50+ (1 of 1 - PCV) 11/06/2023 ZOSTER VACCINE (1 of 2) 11/06/2023 COVID-19 VACCINE (3 - 2023-2 5 season) 2024 07/06/2020, 06/15/2020 DEPRESSION SCREENING 06/26/2024 INFLUENZA VACCINE (Season Ended) 2025 03/16/2018, 03/20/2017 HIB VACCINE Aged Out No longer eligi ble based on patient's age to complete this topic HPV VACCINE Aged Out No longer eligi ble based on patient's age to complete this topic MENINGOCOCCAL (Group B) VACCINE SHARED DECISION-MAKING Aged Out No longer eligible based on patient's age to complete this topic MENINGOCOCCAL GROUPS A/C/Y/W VACCINE Aged Out No longer eligible b ased on patient's age to complete this topic Insurance Care Teams Teacher Associate Relationship Specialty Start Date End Date Yvonne Vaughn APRN-CNS [address] [place] [address] PCP - General 10/13/22
--- OUTSIDE RECORDS SUMMARY | 2024-10-18 15:44 | XMS_ITS | Clinical Summary ---
Author Organization [facility] [address] Address [address] [place] [address] Phone Care Team Providers Care Soda Fountain Manager Name Role Phone Yvonne Vaughn NP Primary Care Provider [phone] Guy Monroy MD Unavailable [phone] Allergies No known active allergies Medications cyclobenzaprine (FLEXERIL) 10 mg tablet TK 1 T PO HS PRF SPASMS 2 8 Active rizatriptan (MAXALT) 10 mg tabletIndication s:Migraine TK 1 T PO 1 TIME. MAY REPEAT AT 2 HOUR INTERVALS. DO NOT EXCEED 30 MG IN 24 H 1 8 Active fluconazole (DIFLUCAN) 150 mg tablet 1 po now, and repeat in 4 days. 2 tablet 1 8 Active Additional Information Patient not taking.Reported on 07/16/2024 clotrimazole-bet amethasone (LOTRISONE) cream Apply topically 2 (two) times a day. 15 g 1 8 Active Additional Information Patient not taking.Reported on 07/16/2024 terconazole (TERAZOL 7) 0.4 % vaginal creamIndications :Vulvovaginal Candidiasis Insert 1 applicator into the vagina nightly. 45 g 8 Active Additional Information Patient not taking.Reported on 07/16/2024 estradioL (ESTRACE) 0.01 % (0.1 mg/gram) vaginal cream USE 1 GRAM VAGINALLY 3 TIMES A WEEK 4 Active Active Problems Problem Noted Date Diagnosed Date Knee pain 11/11/2014 Overview (09/29/2016): Knee pain Arthritis 11/11/2014 Overview (09/29/2016): Arthritis Encounters Date Type Department Care Team Description 08/01/[address] [address] Savannah Zavaleta RN from Last 3 Months Immunizations Immunization Administration Dates Next Due Tdap 04/07/2008 Surgical History Surgery Date Site/Laterality Comments NO PAST SURGERIES ABLATION Uterine Medical History Medical History Date Comments Situational depression History of cold sores HSV 1 Migraine headache Heartburn Family History Medical History Relation Name Comments Melanoma Daughter X 3; genetic te sting negative; has a paternal aunt who had melanoma at age 30 Unknown Family History Father Davonte nt does not know any other paternal family history be sites her father. Crohn's disease Maternal Grandfather Hypertension Maternal Grandfather Diabetes Maternal Grandmother Throat cancer Maternal Grandmother Breast cancer Mother Patient states mother was around age 50 50. 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[place], [place] Not on file Not on file Not on file Obstetrics History Para Term AB IAB SAB Ectopic Multiple Livin g Live Births 3 3 3 0 0 0 0 0 0 3 3 Date Outcome GA Total Labor Labor/2nd/3rd Weight Sex Type Anes PTL Suzi A1 A5 Name Clin Term Term Term Last Filed Vital Signs Vital Sign Reading Time Taken Comments Blood Pressure 104/65 07/16/2024 9:45 AM CHANNELER Pulse 88 07/16/2024 9:45 AM CHANNELER Temperature 36.7 C (98.1 F) 07/16/2024 9:45 AM CHANNELER Respiratory Rate 18 07/16/2024 9:45 AM CHANNELER Oxygen Saturation 100% 07/16/2024 9:45 AM CHANNELER Inhaled Oxygen Concentration - - Weight 57.2 kg (126 lb 3.2 oz) 07/16/2024 9:45 A M CHANNELER Height 166.4 cm (5' 5.5 ) 07/16/2024 9:45 AM CHANNELER Body Mass Index 20.68 07/16/2024 9:45 AM CHANNELER Plan of Treatment Health Maintenance Due Date Last Done Comments Breast Cancer Screening-Mammogram 1973 Colon Cancer Screening-Colonoscopy 1973 Depression Screening 1973 Hepatitis C Screening 1973 Cervical Cancer Screening 10/02/2018 10/02/2017 Regular Well Visit/Exam 18-64 10/02/2018 10/02/2017 Zoster Vaccine (1 of 2) 11/06/2023 Covid-19 Vaccine ( season) 2024 05/22/2023, 03/06/2022, 07/06/2020, Additional history exists DTaP/Tdap/Td Vaccine (3 - Td or Tdap) 07/06/2026 07/06/2016, 04/07/2008 Hepatitis B Screening Completed 02/03/2017 , 09/02/2016, 08/05/2016 Influenza Vaccine Completed 04/12/2024, , 03/17/2022, Additional history exists Pneumococcal vaccine <65 Aged Out No longer eligible based on patient's age to complete this topic Procedures Procedure Name Priority Date/Time Associated Diagnosis Comments THINPREP IMAGING PAP AND HPV MRNA E6/E7 REFLEX HPV 16,18/45 Routine 10/02/2017 3:44 PM CDT from Last 3 Months or Most Recently Relevant to Health Maintenance Results * ThinPrep Imaging Pap and HPV mRNA E6/E7 Reflex HPV 16,18/45 (10/02/2017 3:44 PM CDT) Report status [facility]ED [facility] [place] Comment:Result canceled by t he ancillary CLINICAL INFORMATION: [facility] Comment:Information not prov ided LMP 03/13/18 [facility] Previous Pap NONE GIVEN [facility] Prev. Bx NONE GIVEN [facility] SOURCE: [facility] Comment:Cervix, Endocervix Pap, specimen adequacy [facility] Comment: Satisfactory for evaluation. Endocervical/transformation zone component present. Pap, general categorization [facility] Comment:Result canceled by t he ancillary HPV interp [facility] [place] Comment:Negative for intraep ithelial lesion or malignancy. Infection: [facility]ELED [facility] [place] Comment:Result canceled by t he ancillary COMMENTS [facility] [place] Comment: This Pap test has been evaluated with computer assisted technology. Electron Beam Machine Welder Setter [facility] - Comment: BAB, CT(ASCP) CT screening location: [place] [address] [address] [place] [address] Review hematologist oncologist [facility] [place] Comment:Result canceled by t he ancillary Pathologist [facility] [place] Comment:Result canceled by t he ancillary Comment [facility] Comment: EXPLANATORY NOTE: The Pap is a screening test for cervical cancer. It is not a diagnostic test and is subject to false negative and false positive results. It is most reliable when a satisfactory sample, regularly obtained, is submitted with relevant clinical findings and history, and when the Pap result is evaluated along with historic and current clinical information. Human papillomavirus RNA, High Risk E6/E7 Not Detected Not Detected [facility] [place] Comment: This test was performed using the APTIMA HPV Assay ([employer] This assay detects E6/E7 viral messenger RNA (mRNA) from 14 high-risk HPV types (16,18,31,33,35,39,45,51,52,56,58,59,66,68). 10/02/2017 3:44 PM CDT 10/03/2017 5:36 AM CDT Narrative Resulting Agency Comment Performing Organization Information: Site ID: Name: [facility] Address: [facility] [address] [address] Director: Bashir Monk MD Lenora Workman MD LAB CYTOLOGY ORDERA BLES Final Result [facility] [place], [place] from Last 3 Months or Most Recently Relevant to Health Maintenance Insurance [employer] [place] [facility] CHO[facility] PL[facility] PL[facility] Care Teams Soda Fountain Manager Relationship Specialty Start Date End Date Yvonne Vaughn NP [address] [place] [address] PCP - General Cardiovascular Disease 07/16/24 Guy Monroy MD [address] [place] [address] Referring Physician Obstetrics and Gynecology 08/01/24
--- OUTSIDE RECORDS SUMMARY | 2024-10-18 15:44 | XMS_ITS | Referral Summary ---
Author Organization [facility] [address] Address [address] [place] [address] Phone Care Team Providers Care Bulk Materials Handling Plant Operator Name Role Phone Yvonne Vaughn NP Primary Care Provider [phone] Guy Monroy MD Unavailable [phone] Encounters Date Type Department Care Team Description 08/01/2024 Telephone [place] [id number] [place] [address] Savannah Zavaleta, LUIS from Last 3 Months Allergies No known active allergies Medications cyclobenzaprine [...] Knee pain Arthritis 11/11/2014 Overview (09/29/2016): Arthritis Immunizations Immunization Administration Dates Next Due Tdap 04/07/2008 Social History Tobacco Use Types Packs/Day Years Used Date Smoking Tobacco: Never Smokeless Tobacco: Never Tobacco Cessation:Counseling Given: Yes Alcohol Use Standard Drinks/Week Comments Yes 0 (1 standard drink = 0.6 oz pur e alcohol) Comments No Sex and Gender Information Value Date Recorded Sex Assigned at Not on file Legal Sex Female 11:54 PM OPHTHALMIC SURGICAL ASSISTANT Gender Identity Not on file Sexual Orientation Not on file 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[place], [place]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 file Not on file Not on file Last Filed Vital Signs Vital Sign Reading Time Taken Comments Blood Pressure 104/65 07/16/2024 9:45 AM OPHTHALMIC SURGICAL ASSISTANT Pulse 88 07/16/2024 9:45 AM OPHTHALMIC SURGICAL ASSISTANT Temperature 36.7 C (98.1 F) 07/16/2024 9:45 AM OPHTHALMIC SURGICAL ASSISTANT Respiratory Rate 18 07/16/2024 9:45 AM OPHTHALMIC SURGICAL ASSISTANT Oxygen Saturation 100% 07/16/2024 9:45 AM OPHTHALMIC SURGICAL ASSISTANT Inhaled Oxygen Concentration - - Weight 57.2 kg (126 lb 3.2 oz) 07/16/2024 9:45 A M OPHTHALMIC SURGICAL ASSISTANT Height 166.4 cm (5' 5.5 ) 07/16/2024 9:45 AM OPHTHALMIC SURGICAL ASSISTANT Body Mass Index 20.68 07/16/2024 9:45 AM OPHTHALMIC SURGICAL ASSISTANT Plan of Treatment Not on file Procedures Procedure Name Priority Date/Time Associated Diagnosis Comments THINPREP IMAGING PAP AND HPV MRNA E6/E7 REFLEX HPV 16,18/45 Routine 10/02/2017 3:44 PM CDT from Last 3 Months or Most Recently Relevant to Health Maintenance Results * ThinPrep Imaging Pap and HPV mRNA E6/E7 Reflex HPV 16,18/45 (10/02/2017 3:44 PM CDT) Report status CANCELED [facility] [place] Comment:Result canceled by t cate ancillary CLINICAL INFORMATION: [facility] - Comment:Information not prov ided LMP 09/05/17 [facility] Previous Pap NONE GIVEN [facility] Prev. Bx NONE GIVEN [facility] SOURCE: [facility] [place] Comment:Cervix, Endocervix Pap, specimen adequacy [facility] - Comment: Satisfactory for evaluation. Endocervical/transformation zone component present. Pap, general categorization [facility]CELED [facility] [place] Comment:Result canceled by t cate ancillary HPV interp [facility] [place] Comment:Negative for intraep ithelial lesion or malignancy. Infection: [facility]ELED [facility] [place] Comment:Result canceled by t cate ancillary COMMENTS [facility] [place] Comment: This Pap test has been evaluated with computer assisted technology. Retail Selling Specialist [facility] - Comment: BAB, CT(ASCP) CT screening location: [place] [address] [place] [address] Review pit furnace melter [facility]ED [facility] [place] Comment:Result canceled by t cate ancillary Pathologist [facility]ELED [facility] [place] Comment:Result canceled by t cate ancillary Comment [facility] [place] Comment: EXPLANATORY NOTE: The [...] High Risk E6/E7 Not Detected Not Detected [facility] - Comment: This test was performed using the APTIMA HPV Assay ([employer] This assay detects E6/E7 viral messenger RNA (mRNA) from 14 high-risk HPV types (16,18,31,33,35,39,45,51,52,56,58,59,66,68). 10/02/2017 3:44 PM CDT 10/03/2017 5:36 AM CDT Narrative Resulting Agency Comment Performing Organization Information: Site ID: [place] Name: [facility] Address: [address] [address] Director: Bashir Monk MD Lenora Workman MD LAB CYTOLOGY ORDERA BLES Final Result [facility] [place] [place] from Last 3 Months or Most Recently Relevant to Health Maintenance Insurance [facility] CHOICE PLUS [facility] HMO/PPO Address: [address] [address] [place] [address] [facility] CHOICE PLUS [facility] HMO/PPO Address: [address] [address] [place] [address] Care Teams Bulk Materials Handling Plant Operator Relationship Specialty Start Date End Date Yvonne Vaughn NP [address] [place] [address] PCP - General Cardiovascular Disease 07/16/24 Guy Monroy MD [address] [place] [address] Referring Physician Obstetrics and Gynecology 08/01/24
--- OUTSIDE RECORDS SUMMARY | 2024-10-18 15:44 | XMS_ITS | Clinical Summary ---
Author Organization [facility] Address [address] [place] [address] Phone Care Team Providers Care Assembly Line Leader Name Role Phone Buddy Zaragozaian Primary Care Provider Allergies No known active allergies Medications No known medications Active Problems No known active problems Social History Tobacco Use Types Packs/Day Years Used Date Smoking Tobacco: Never Smokeless Tobacco: Never Tobacco Cessation:Counseling Given: Not Answered Alcohol Use Standard Drinks/Week Comments Not Currently 0 (1 standard drink = 0.6 oz pur e alcohol) Sexually Active Control Partners Comments Not Currently Comments Unknown Sex and Gender Information Value Date Recorded Sex Assigned at Not on file Legal Sex Female 9:17 AM CDT Gender Identity Not on file Sexual Orientation Not on file Last Filed Vital Signs Vital Sign Reading Time Taken Comments Blood Pressure 124/74 03/31/2024 9:31 AM CDT Pulse 101 03/31/2024 9:31 AM CDT Temperature 36.8 C (98.3 F) 03/31/2024 9:31 AM CDT Respiratory Rate 19 03/31/2024 9:31 AM CDT Oxygen Saturation 100% 03/31/2024 9:31 AM CDT Inhaled Oxygen Concentration - - Weight - - Height - - Body Mass Index - - Plan of Treatment Health Maintenance Due Date Last Done Comments Hepatitis C Virus (HCV) Screening 1973 Mammogram 1973 Pap Smear 1994 Cervical Cancer Screening (CCS) 11/06/2003 HPV/Cotest 11/06/2003 Colonoscopy 2018 Colorectal Cancer Screening 2018 Cologuard 11/06/2023 Immunochemical Fecal Occult Blood 11/06/2023 Pneumococcal Immunization (50+ years) (1 of 1 - PCV) 11/06/2023 Zoster Immunization (1 of 2) 11/06/2023 Influenza Immunization (#1) 02/25/202404/27, 03/17/2022, 04/13/2021, Additional history exists SARS-COV-2 Immunization (2023- season) 2024 05/22/2023, 03/06/2022, 07/06/2020, Additional history exists Respiratory Syncytial Virus (RSV) Immunization (Adult) (1 - 1-dose 75+ series) 2048 TdaP Immunization Completed 07/06/2016, 04/07/2008 Hepatitis B Immunization Completed 017, 09/02/2016, 08/05/2016 Meningococcal Immunization (ACWY) Aged Out No longer eligible based on patient's age to complete this topic Rotavirus Immunization Aged Out No lo nger eligible based on patient's age to complete this topic Insurance Care Teams Assembly Line Leader Relationship Specialty Start Date End Date Buddy Zaragoza DO [address] [place] [address] [place] [address] PCP - General Internal Medicine 03/31/24
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
[2024-10-18 17:13] VITALS: BP 117/75; PULSE 67; RESP 18; O2SAT 100
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
[2024-10-18] MEDS: IBUPROFEN 400 MG TABLET 800 MG PO (17:44)
[2024-10-18 17:48] VITALS: BP 110/95; PULSE 69; RESP 18; O2SAT 100
--- OUTSIDE RECORDS SUMMARY | 2024-10-18 18:09 | XMS_ITS | Referral Summary ---
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[place], [place] Not on file Not on file Not on file Last Filed Vital Signs Vital Sign Reading Time Taken Comments Blood Pressure 104/65 07/16/2024 9:45 AM TECHNICAL PROJECT LEAD Pulse 88 07/16/2024 9:45 AM TECHNICAL PROJECT LEAD Temperature 36.7 C (98.1 F) 07/16/2024 9:45 AM TECHNICAL PROJECT LEAD Respiratory Rate 18 07/16/2024 9:45 AM TECHNICAL PROJECT LEAD Oxygen Saturation 100% 07/16/2024 9:45 AM TECHNICAL PROJECT LEAD Inhaled Oxygen Concentration - - Weight 57.2 kg (126 lb 3.2 oz) 07/16/2024 9:45 A M TECHNICAL PROJECT LEAD Height 166.4 cm (5' 5.5 ) 07/16/2024 9:45 AM TECHNICAL PROJECT LEAD Body Mass Index 20.68 07/16/2024 9:45 AM TECHNICAL PROJECT LEAD Plan of Treatment Not on file Procedures Procedure Name Priority Date/Time Associated Diagnosis Comments THINPREP IMAGING PAP AND HPV MRNA E6/E7 REFLEX HPV 16,18/45 Routine 10/02/2017 3:44 PM CDT from Last 3 Months or Most Recently Relevant to Health Maintenance Results * ThinPrep Imaging Pap and HPV mRNA E6/E7 Reflex HPV 16,18/45 (10/02/2017 3:44 PM CDT) Report status CANCELED [facility] [place] Comment:Result canceled by t cate ancillary CLINICAL INFORMATION: [facility] - Comment:Information not prov ided LMP 09/05/17 [facility] [place] Previous Pap NONE GIVEN [facility] Prev. Bx NONE GIVEN [facility] [place] SOURCE: [facility] [place] Comment:Cervix, Endocervix Pap, specimen adequacy [facility] - Comment: Satisfactory for evaluation. Endocervical/transformation zone component present. Pap, general categorization CANCELED [facility] [place] Comment:Result canceled by t cate ancillary HPV interp [facility] [place] Comment:Negative for intraep ithelial lesion or malignancy. Infection: CANCELED [facility] [place] Comment:Result canceled by t cate ancillary COMMENTS [facility] [place] Comment: This Pap test has been evaluated with computer assisted technology. Milk Bottler [facility] - Comment: BAB, CT(ASCP) CT screening location: [place] [address] [place] [address] Review meat counter worker CANCELED [facility] [place] Comment:Result canceled by t cate ancillary Pathologist CANCELED [facility] [place] Comment:Result canceled by t cate ancillary Comment [facility] [place] Comment: EXPLANATORY NOTE: The [...] High Risk E6/E7 Not Detected Not Detected [facility] - Comment: This test was performed using the APTIMA HPV Assay ([employer] This assay detects E6/E7 viral messenger RNA (mRNA) from 14 high-risk HPV types (16,18,31,33,35,39,45,51,52,56,58,59,66,68). 10/02/2017 3:44 PM CDT 10/03/2017 5:36 AM CDT Narrative Resulting Agency Comment Performing Organization Information: Site ID: [place] Name: [facility] Address: [address] [address] Director: Bashir Monk MD Lenora Workman MD LAB CYTOLOGY ORDERA BLES Final Result [facility] [place] from Last 3 Months or Most Recently Relevant to Health Maintenance Insurance [facility] CHOICE PLUS [facility] CHOICE PLUS Care Teams Fish Stringer Assembler Relationship Specialty Start Date End Date Yvonne Vaughn NP [address] [place] [address] PCP - General Cardiovascular Disease 07/16/24 Guy Monroy MD [address] [place] [address] Referring Physician Obstetrics and Gynecology 08/01/24
--- OUTSIDE RECORDS SUMMARY | 2024-10-18 18:09 | XMS_ITS | Clinical Summary ---
Author Organization [facility] Address [address] [place] [address] Phone Care Team Providers Care Luggage Liner Name Role Phone Buddy Zaragozaian Primary Care [...] to complete this topic Insurance Care Teams Luggage Liner Relationship Specialty Start Date End Date Buddy Zaragoza DO [address] [place] [address] [place] [address] PCP - General Internal Medicine 03/31/24
--- OUTSIDE RECORDS SUMMARY | 2024-10-18 18:09 | XMS_ITS | Clinical Summary ---
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[place], [place] Not on file Not on file [...] Comments Blood Pressure 104/65 07/16/2024 9:45 AM MANAGER STERILE Pulse 88 07/16/2024 9:45 AM MANAGER STERILE Temperature 36.7 C (98.1 F) 07/16/2024 9:45 AM MANAGER STERILE Respiratory Rate 18 07/16/2024 9:45 AM MANAGER STERILE Oxygen Saturation 100% 07/16/2024 9:45 AM MANAGER STERILE Inhaled Oxygen Concentration - - Weight 57.2 kg (126 lb 3.2 oz) 07/16/2024 9:45 A M MANAGER STERILE Height 166.4 cm (5' 5.5 ) 07/16/2024 9:45 AM MANAGER STERILE Body Mass Index 20.68 07/16/2024 9:45 AM MANAGER STERILE Plan of Treatment Health Maintenance Due Date [...] has been evaluated with computer assisted technology. Qual Research Manager [facility] - Comment: BAB, CT(ASCP) CT screening location: [place] [address] [address] [place] [address] Review microsoft dynamics ax developer [facility]CELED [facility] [place] Comment:Result canceled [...] was performed using the APTIMA HPV Assay ([employer] This assay detects E6/E7 viral messenger RNA (mRNA) from 14 high-risk HPV types (16,18,31,33,35,39,45,51,52,56,58,59,66,68). 10/02/2017 3:44 PM CDT 10/03/2017 5:36 AM CDT Narrative Resulting Agency Comment Performing Organization Information: Site ID: Name: [facility] Address: [facility] [address] [address] Director: Bashir Monk MD Lenora Workman MD LAB CYTOLOGY ORDERA BLES Final Result [facility] [place], [place] from Last 3 Months or Most Recently Relevant to Health Maintenance Insurance [employer] [place] [facility] CHOICE PLUS [facility] HMO/PPO Address: [address] [address] [place] [address] [facility] CHOICE PLUS [facility] HMO/PPO Address: [place] [address] Care Teams Material Control Manager Relationship Specialty Start Date End Date Yvonne Vaughn NP [address] [place] [address] PCP - General Cardiovascular Disease 07/16/24 Guy Monroy MD [address] [place] [address] Referring Physician Obstetrics and Gynecology 08/01/24
--- OUTSIDE RECORDS SUMMARY | 2024-10-18 18:09 | XMS_ITS | Clinical Summary ---
Author Organization [facility] Address [address] [place] [address] Care Team Providers Care Steel Estimator Name Role Phone ReubenYvonne mtz [facility]IN[facility]OLOG[facility] Primary Care Provider [phone] Source Comments [facility],non-owned Affiliates and Associated Physician Practices is amultiple site organization consisting of ambulatory clinics and hospital sitesin [place], [place], [place] and [place]. This disclosure is being madepursuant to the Care Everywhere program and may not contain all information available regarding this patient. Last updated 18.[facility] Allergies No known active allergies Medications * [...] patient's age to complete [place] [address] Care Teams Steel Estimator Relationship Specialty Start Date End Date Yvonne Vaughn APRN-CNS [address] [place] [address] PCP - General 10/13/22
[2024-10-18] MEDS: CYCLOBENZAPRINE HCL 10 MG TABLET PO (18:22)
[2024-10-18 18:28] VITALS: BP 109/81; PULSE 73; RESP 18; O2SAT 100
== END 2024-10-18 18:29 | disposition home or self-care (01) ==
PROVIDERS: Emergency Provider Physician Assistant; PCP Clinical Nurse Specialist
DX: S16.1XXA Strain of muscle, fascia and tendon at neck level, initial encounter (principal); Z86.718 Personal history of other venous thrombosis and embolism; Z86.2 Personal history of diseases of the blood and blood-forming organs and certain disorders involving the immune mechanism; M50.31 Other cervical disc degeneration, high cervical region; V43.52XA Car driver injured in collision with other type car in traffic accident, initial encounter
CPT/HCPCS: 70450; 72125; 73060; 99284; A9270